=== PATIENT | male | born 1955 | race Caucasian/White ===

== ENCOUNTER → 2017-04-15 | Outpatient (CLI) | payer OTHER ==
[~2017-04-15] MED LIST: ASPIR 8181 MG PO; DIGOXIN250 MCG PO; IMDUR 30 MG TAB30 M1 PO; JANUVIA100 MG PO; MYRBETRIQ25 MG PO; NUVIGIL150 MG PO; PRILOSEC 20 MG20 MG PO; TOPROL XL100 MG PO
== END ==
LOC: RAD 12:46
DX: R06.00 Dyspnea, unspecified (principal)

== ENCOUNTER 2017-06-02 13:01 | Inpatient (IN) | payer OTHER ==
[~2017-06-02] VITALS: Ht 175.3 cm; Wt 135.4 kg
--- NOTE | ~2017-06-02 | EKG ---
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
--- NOTE | ~2017-06-02 | EXE ---
[facility] [address] [place] [address] STRESS ECHOCARDIOGRAM Name: RUSTAMGROVER Room #: 206-P ADM IN M.R.#: [id number] Admission: 06/02/17 Attend Phys: Erwin Galvez, Discharge: Date of : 57 Date of Service: 06/03/17 1232 Report #: [id number] THIS REPORT FOR: //name// APPROVED REPORT Exam: Dobutamine Stress Echo Indication: Chest pain Patient Location: Echo lab Stress Nurse: April Carr RN Room #: 206 Status: routine Ht: 5 ft 9 in HR: 66 bpm BP: 121/75 mmHg Rhythm: NSR Medical History Medical History: CABG, HTN, Hyperlipidemia, Diabetes Allergies: No known drug allergies Procedure The patient underwent a Pharmacological Stress Test using Dobutamine. Blood pressure, heart rate, and EKG were monitored. An Echocardiogram was performed by certified emergency vehicle technician in four stages in quad fashion. At peak stress, four selected images were obtained and placed side by side with resting images for comparison. Stress Test Details Stress Test: Pharmacological stress testing performed using 40 mcg/kg/min of Dobutamine. HR Resting HR: 66 bpm Max Heart Rate (APMHR): 159 bpm Max HR Achieved: 144 bpm Target HR (85% APMHR): 135 bpm % of APMHR: 90 Recovery HR: 85 bpm HR response to stress: Normal HR response to stress BP Resting BP: 124/62 mmHg Max BP: 140/80 mmHg Recovery BP: 106/72 mmHg ECG Resting ECG: Sinus Rhythm Stress ECG: Sinus Tachycardia [facility] [address] [place] [address] STRESS ECHOCARDIOGRAM Name: GROVER EASTON Room #: 206-P ADM IN .R.#: [id number] Admission: 06/02/17 Attend Phys: Erwin Galvez, Discharge: Date of : 57 Date of Service: 06/03/17 1232 Report #: [id number] Arrhythmia: None Recovery ECG: Sinus Rhythm Clinical Reason for Termination: Patient symptoms. Cough, chest discomfort Dobutamine for 11mins 58secs. Stress ECG Conclusion 1. SUBJECTIVELY NEGATIVE FOR ISCHEMIA 2. ELECTROCARDIOGRAPHICALLY NEGATIVE FOR ISCHEMIA Pre-Stress Echo The resting Echocardiogram showed normal left ventricular contractility with an estimated Ejection Fraction of about 55-60%. Biatrial enlargement. LVH noted, moderate MR and mild to moderate TR. PAP is 35mmHg plus the right atrial pressure. Post-Stress Echo The stress Echocardiogram showed normal left ventricular contractility with an estimated Ejection Fraction of about 65-70%. Normal augmentation of wall motion in all segments on post stress images. Conclusion Clinical Response: Non-ischemic Stress ECG Response: Non-ischemic Stress Echo Images: Non-ischemic 1. LOW RISK STUDY Other Information Study Quality: Adequate <Conclusion> 1. LOW RISK STUDY <ELECTRONICALLY SIGNED> By: Aquilino Wright MD 06/03/17 1232 1232 1232 Aquilino Wright MD /INF
[2017-06-02 13:11] VITALS: BP 154/80
[2017-06-02] MEDS ORDERED: TRAMADOL 50 MG50 MG PO (13:22)
[2017-06-02 13:46] LABS: ABSOLUTE NEUTROPHILS 7.6 thou/uL (1.4-8.2); BASOPHILS 0.7 % (0.0-2.0); HEMATOCRIT 44.5 % (42.0-52.0); HEMOGLOBIN 14.7 gm/dL (14.0-18.0); LYMPHOCYTES 20.2 % (24.0-44.0); MCH 26.6 pg (26.0-34.0); MCV 80.5 fL (80.0-100.0); PLATELET COUNT 198 thou/uL (150-400); POLYS 66.1 % (36.0-66.0); RBC 5.53 mil/uL (4.50-6.00); RDW 14.9 % (10.5-14.5); WBC 11.4 thou/uL (4.0-11.0)
[2017-06-02 13:54] LABS: ANION GAP 8 mmol/L (7-16); BUN 12 mg/dL (7-18); CALCIUM 8.9 mg/dL (8.5-10.1); CHLORIDE 105 mmol/L (98-107); CO2 25 mmol/L (21-32); GLUCOSE 224 mg/dL (74-106); POTASSIUM 4.1 mmol/L (3.5-5.1); SODIUM 138 mmol/L (136-145)
[2017-06-02 14:06] LABS: MANUAL DIFF NO
[2017-06-02 14:07] LABS: NT-PRO BRAIN NAT PEPTIDE 88 pg/mL (<300); TROPONIN-I < 0.04 ng/mL (<0.04-0.07)
[2017-06-02 15:40] VITALS: BP 133/66
[2017-06-02 15:53] LABS: APTT 26.9 Seconds (24.5-32.8); PROTIME 9.6 Seconds (9.3-11.4)
[2017-06-02 16:58] VITALS: BP 110/60
[2017-06-02 17:00] VITALS: BP 122/74
[2017-06-02 19:48] VITALS: BP 133/79
[2017-06-02 23:03] VITALS: BP 144/96
[2017-06-03 02:39] LABS: CHOLESTEROL 156 mg/dL (<200); HDL CHOLESTEROL 26 mg/dL (>40); LDL CHOLESTEROL 112 mg/dL (<100); TRIGLYCERIDE 94 mg/dL (<150); TROPONIN-I < 0.04 ng/mL (<0.04-0.07); VLDL 19 mg/dL (<40)
[2017-06-03 02:40] LABS: SERUM ASSESSMENT Clear
[2017-06-03 03:01] VITALS: BP 140/93
[2017-06-03 03:11] LABS: GLYCOHEMOGLOBIN (HGB A1C) 6.7 % (4.8-5.6)
[2017-06-03 08:18] VITALS: BP 121/75
[2017-06-03 10:55] VITALS: BP 92/59
[2017-06-03 14:42] VITALS: BP 92/59
[2017-06-03 16:03] VITALS: BP 92/59
== END 2017-06-03 16:00 | disposition home or self-care (01) | DRG 313 ==
LOC: ER 13:01 → EROBS 15:15 → 2N 15:15 → EROBS 16:42 → 2N 17:04
PROVIDERS: Emergency Medicine; Nurse Practitioner
DX: R07.89 Other chest pain (principal); I25.110 Atherosclerotic heart disease of native coronary artery with unstable angina pectoris; I48.91 Unspecified atrial fibrillation; E78.00 Pure hypercholesterolemia, unspecified; K21.9 Gastro-esophageal reflux disease without esophagitis; I10 Essential (primary) hypertension; G47.00 Insomnia, unspecified; Z96.652 Presence of left artificial knee joint; G47.33 Obstructive sleep apnea (adult) (pediatric); E78.5 Hyperlipidemia, unspecified; H54.8 Legal blindness, as defined in USA; E11.9 Type 2 diabetes mellitus without complications; Z95.1 Presence of aortocoronary bypass graft; Z90.49 Acquired absence of other specified parts of digestive tract; Z88.1 Allergy status to other antibiotic agents; Z88.6 Allergy status to analgesic agent; Z82.49 Family history of ischemic heart disease and other diseases of the circulatory system; Z79.82 Long term (current) use of aspirin; Z79.899 Other long term (current) drug therapy
CPT/HCPCS: 10081

== ENCOUNTER 2017-07-16 11:49 | Emergency (ER) | payer OTHER ==
[~2017-07-16] VITALS: Ht 175.3 cm; Wt 137.0 kg
[~2017-07-16 11:49] MED LIST changes: +TRAMADOL 50 MG50 MG PO
== END 2017-07-16 14:15 | disposition home or self-care (01) ==
LOC: ER 11:49 → EDBD 11:49 → ER 14:15
DX: R10.2 Pelvic and perineal pain (principal); I10 Essential (primary) hypertension; E78.00 Pure hypercholesterolemia, unspecified; K21.9 Gastro-esophageal reflux disease without esophagitis; I25.10 Atherosclerotic heart disease of native coronary artery without angina pectoris; I48.91 Unspecified atrial fibrillation; E11.9 Type 2 diabetes mellitus without complications; H54.0 Blindness, both eyes; Z95.1 Presence of aortocoronary bypass graft; Z98.890 Other specified postprocedural states; Z96.652 Presence of left artificial knee joint; Z88.1 Allergy status to other antibiotic agents; Z88.6 Allergy status to analgesic agent; V03.90XA Pedestrian on foot injured in collision with car, pick-up truck or van, unspecified whether traffic or nontraffic accident, initial encounter; Y93.89 Activity, other specified; Y92.89 Other specified places as the place of occurrence of the external cause; Y99.8 Other external cause status

== ENCOUNTER → 2017-11-19 | Outpatient (CLI) | payer OTHER ==
[~2017-11-19] VITALS: Ht 175.3 cm; Wt 136.1 kg
[~2017-11-19] MED LIST changes: +CENTRUM SILVER1 EAC4 PO; +GABAPENTIN 100100 MG; -IMDUR 30 MG TAB30 M1 PO; +IMDUR 60 MG TAB60 M1 PO; +MECLIZINE HCL12.5 MG PO; +MELATONIN3 MG PO; +NAPROSYN500 MG PO; +NITROGLYCERIN0.4 MG SUBLING; +PROTONIX40 M1 PO
--- NOTE | ~2017-11-19 | S ---
[facility] [place] [address] SURGICAL PATH RPT PROCEDURE Name: GROVER MCGEE Room #: REG CL M.R.#: [id number] Admission: 11/19/17 Date of : 57 Discharge: Report #: [id number] Path Case #: [id number] PATHOLOGY REPORT COLLECTION DATE: 11/19/2017 RECEIVED DATE: 11/19/2017 SUBMITTING PHYS: Dr. Oscar Rivera OTHER PHYS: Dr. Jomar Nichols SPECIMEN(S) RECEIVED: A.Gastric * * * * * * * * * * * * FINAL DIAGNOSIS: A. Gastric: - Chronic inactive gastritis. - An H. pylori immunostain is negative (Block A1; appropriately reactive control). PATHOLOGIST: Chad Rodriguez M.D. REPORT ELECTRONICALLY SIGNED BY: Chad Rodriguez M.D. DATE/TIME: 11/22/2017 10:16 * * * * * * * * * * * * GROSS PATHOLOGY: Received in formalin labeled "Grover Mgcee, BX of gastric rule out H. pylori," are 4 segments of griffin soft tissue measuring 1.0 x 0.4 x 0.2 cm in aggregate dimensions. The specimen is submitted entirely in cassette A1. (SDY; 11/19/2017) CLINICAL HISTORY: Dysphagia Reflux, chest pain, dysphagia INITIAL CPT CODE(S): A; 28330, 31018 Professional services performed by [facility] at [address], [place] [address] Technical services performed by [facility] at [address] [place] [address], [address], [place] [address]. [facility] [address] [place] [address] SURGICAL PATH RPT PROCEDURE Name: GROVER MCGEE Room #: REG HOLLY Harris.#: [id number] Admission: 11/19/17 Date of : 57 Discharge: Report #: [id number] Path Case #: [id number] [facility] [address] [address] PHONE: [phone] DIRECTOR: Rah Newberry M.D. * * * END OF REPORT * * *
--- NOTE | ~2017-11-19 | P ---
[facility] [place] [address] PROCEDURE REPORT Name: GROVER EASTON Room #: REG [facility].#: [id number] Admission: 11/19/17 Attend Phys: Oscar Ibarra Discharge: Date of : 57 Report #: [id number] THIS REPORT FOR: //name// CC: Oscar Nichols MD DATE OF SERVICE: 11/19/2017 PROCEDURE PERFORMED: Upper endoscopy with biopsies and esophageal dilation. HISTORY OF PRESENT ILLNESS: The patient is a 62-year-old male with a history of gastroesophageal reflux disease and intermittent chest pain despite being on omeprazole 40 mg on a daily basis. He has continued symptoms. He does take aspirin as well as NSAIDs. Plan is for upper endoscopy. The patient's cardiac workup has been negative. DESCRIPTION OF PROCEDURE: The risks and benefits of the procedure were explained to the patient, those risks including but not limited to bleeding, perforation and the risk of sedation. He understood these risks and gave informed consent. Sedation was given using propofol per anesthesia. Next, using a standard KellBenxn upper endoscope, the scope was placed in the patient's mouth and advanced under direct vision through the esophagus, stomach and into the second portion of the duodenum. The larynx was normal in appearance. The esophagus was normal throughout. The GE junction was normal. There was no evidence of esophagitis or strictures. Overall, the gastric mucosa was normal. Biopsies were obtained to rule out the possibility of H. pylori. The pylorus was normal and patent. The duodenal bulb, first and second portion were all normal. The scope was then brought back up into the patient's stomach and a Savary guidewire was inserted through the scope, leaving the guidewire in place as the scope was then withdrawn. Next, a 48-Yi Savary dilation of the esophagus was performed without difficulty. The wire and dilator removed. The scope was reintroduced into the patient's stomach. There was no evidence of mucosal tear after dilation. The scope was then withdrawn and the procedure terminated. The patient tolerated the procedure well. IMPRESSION: Normal upper endoscopy, status post dilation. RECOMMENDATIONS: 1. Await biopsy results. 2. Observe the patient post-dilation. 3. We will switch to different PPI therapy to see if this improves his symptoms. [address] [address] PROCEDURE REPORT Name: GROVER EASTON Room #: REG CLSaqib Gallagher#: [id number] Admission: 11/19/17 Attend Phys: Oscar Ibarra Discharge: Date of : 57 Report #: [id number] Thank you for allowing me to participate in his care. <ELECTRONICALLY SIGNED> By: Oscar Rivera MD 11/26/17 0808 0857 2134 Oscar Rivera MD /nt
== END | disposition home or self-care (01) ==
LOC: GI 06:38
DX: K21.9 Gastro-esophageal reflux disease without esophagitis (principal); I48.91 Unspecified atrial fibrillation; I11.9 Hypertensive heart disease without heart failure; E11.9 Type 2 diabetes mellitus without complications; I25.10 Atherosclerotic heart disease of native coronary artery without angina pectoris; E78.5 Hyperlipidemia, unspecified; G47.33 Obstructive sleep apnea (adult) (pediatric); Z95.1 Presence of aortocoronary bypass graft; Z79.82 Long term (current) use of aspirin; Z96.652 Presence of left artificial knee joint; Z79.899 Other long term (current) drug therapy; Z98.890 Other specified postprocedural states
CPT/HCPCS: 62110; 62900

== ENCOUNTER 2018-08-17 09:08 | Observation (INO) | payer OTHER ==
[~2018-08-17] VITALS: Ht 175.3 cm; Wt 139.3 kg
--- NOTE | ~2018-08-17 | CATHLAB ---
[facility] [place] [address] INVASIVE PROCEDURE REPORT Name: EASTON,GROVER YULI Room #: 218-P ADM IN ..#: [id number] Admission: 08/17/18 Attend Phys: Aquilino Velazquez Discharge: Date of : 57 Date of Service: 08/18/18 1304 Report #: [id number] THIS REPORT FOR: //name// APPROVED REPORT Study performed: 08/17/2018 11:10:43 Patient Details Patient Status: Out-Patient Room #: The patient is a 63 year-old male Event Personnel Aquilino Wright Media Assistant, Marilee Rea RN RN, Ivet Siu RTR, Guillermo España David Monitor Procedures Performed Art Access - R femoral artery* Left Heart Cath w/or w/o Coronaries [id number] [facility] Hemostasis with Manual pressure 23510 Initial Mod Sed Same Phys/QHP Gr 300178 73367 Mod Sed Same Phys/QHP Ea 891592, supervision of conscious sedation Indication Chest pain Procedure Narrative The Right Groin^ was infiltrated with 1% Lidocaine subcutaneous anesthesia. A PINNACLE 4FR Sheath #[id number] sheath was inserted into the RFA^. Coronary angiography was performed using coronary diagnostic catheters. The right coronary system was accessed and visualized with a 4FR AL2 #[id number] catheter. The left coronary system was accessed and visualized with a 4FR AL1 #[id number] catheter. The left ventricle was accessed and visualized with a angled pigtail catheter. Left ventricular/Aortic Valve gradient assessed via catheter pullback. Hemostasis was obtained with manual pressure following sheath removal without any complications. The patient tolerated the procedure well and there were no complications associated with the procedure. There was no hematoma. Intraoperative Conscious Sedation Sedation start time: 11:48 Case end Time: 12:27 Versed 3 mg Fluoro Time: 5.18 minutes [facility] [place] [address] INVASIVE PROCEDURE REPORT Name: GROVER EASTON Room #: 218-P [facility] IN ..#: [id number] Admission: 08/17/18 Attend Phys: Aquilino Velazquez Discharge: Date of : 57 Date of Service: 08/18/18 1304 Report #: [id number] Dose: DAP 8259 cGycm2 1253 mGy Contrast Type and Amount: Omnipaque 60 ml Coronary Angiography The patient's coronary anatomy is right dominant. 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 LAD Eyes caliber vessel coursing the anterior interventricular sulcus tapering as his course towards the apex. 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 It continues in the AV groove posteriorly giving rise to a moderate to large caliber posterior descending artery all of which are free of high-grade disease. The posterior circulation consists of 2 large posterior wall branches without significant stenosis R PDA Large caliber vessel of normal origin without significant lesions identified Hemodynamics The aortic pressure is 127/82 mmHg with a mean of 61 mmHg. The left ventricular pressure is 130/13 mmHg with a mean of mmHg. The left ventricular end diastolic pressure is 37 mmHg. Conclusion 1. Coronary disease mild nonobstructive 2. Normal hemodynamics Recommendations Cardiac Risk Reduction Program <ELECTRONICALLY SIGNED> By: Aquilino Wright MD 08/18/18 1304 1304 1304 Aquilino Wright MD /INF
[~2018-08-17 09:08] MED LIST changes: -GABAPENTIN 100100 MG; -MELATONIN3 MG PO; -PROTONIX40 M1 PO
[2018-08-17] MEDS ORDERED: PROTONIX40 M1 PO (09:40)
[2018-08-17] MEDS ORDERED: MELATONIN3 MG PO (09:42)
[2018-08-17 09:43] VITALS: BP 128/81
[2018-08-17 10:09] LABS: HEMOGLOBIN 15.1 gm/dL (14.0-18.0); MCHC 34.3 g/dL (28.0-37.0); MCV 78.5 fL (80.0-100.0); RBC 5.6 mil/uL (4.50-6.00); RDW 14.8 % (10.5-14.5); WBC 12.1 thou/uL (4.0-11.0)
[2018-08-17 10:19] LABS: APTT 26.9 Seconds (24.5-32.8); CALCIUM 9.6 mg/dL (8.5-10.1); CREATININE 0.8 mg/dL (0.7-1.3); POTASSIUM 4.7 mmol/L (3.5-5.1); PROTIME 10.5 Seconds (9.3-11.4)
[2018-08-17 12:44] VITALS: BP 122/76
[2018-08-17 15:59] VITALS: BP 121/80
[2018-08-17] MEDS ORDERED: GABAPENTIN 100100 MG (16:40)
[2018-08-17 20:09] VITALS: BP 135/82
[2018-08-18 04:12] VITALS: BP 146/80
[2018-08-18 07:11] VITALS: BP 121/81
[2018-08-18 10:26] VITALS: BP 121/81
[2018-08-18 11:38] VITALS: BP 135/75
== END 2018-08-18 13:40 | disposition home or self-care (01) ==
LOC: CATH 09:08 → 2N 12:19 → CATH 14:29 → ENTRNSPT 08-18 13:28 → EDTRNSPTSTS 08-18 13:32 → 2N 08-18 13:40
PROVIDERS: Internal Medicine
DX: R07.89 Other chest pain (principal); I10 Essential (primary) hypertension; E78.5 Hyperlipidemia, unspecified; I48.91 Unspecified atrial fibrillation; I25.10 Atherosclerotic heart disease of native coronary artery without angina pectoris; E11.8 Type 2 diabetes mellitus with unspecified complications; K21.9 Gastro-esophageal reflux disease without esophagitis; G47.00 Insomnia, unspecified; G47.30 Sleep apnea, unspecified; Z95.5 Presence of coronary angioplasty implant and graft; Z90.49 Acquired absence of other specified parts of digestive tract; Z98.890 Other specified postprocedural states; Z72.89 Other problems related to lifestyle

== ENCOUNTER 2018-10-28 11:37 | Emergency (ER) | payer OTHER ==
[~2018-10-28] VITALS: Ht 175.3 cm; Wt 133.8 kg
[~2018-10-28 11:37] MED LIST changes: +GABAPENTIN 100100 MG; +MELATONIN3 MG PO; +PROTONIX40 M1 PO
[2018-10-28 12:55] LABS: ABSOLUTE NEUTROPHILS 10.5 thou/uL (1.4-8.2); BASOPHILS 1.1 % (0.0-2.0); EOSINOPHILS 1.8 % (0.0-3.0); HEMATOCRIT 47.8 % (42.0-52.0); HEMOGLOBIN 16.3 gm/dL (14.0-18.0); MCH 26.9 pg (26.0-34.0); MCHC 34.1 g/dL (28.0-37.0); MCV 78.8 fL (80.0-100.0); MONOCYTES 7.5 % (1.0-8.0); PLATELET COUNT 240 thou/uL (150-400); POLYS 72.6 % (36.0-66.0); RBC 6.07 mil/uL (4.50-6.00); WBC 14.5 thou/uL (4.0-11.0)
[2018-10-28 13:04] LABS: ANION GAP 7 mmol/L (7-16); BUN 14 mg/dL (7-18); CALCIUM 9.8 mg/dL (8.5-10.1); CHLORIDE 99 mmol/L (98-107); CO2 27 mmol/L (21-32); CREATININE 1.3 mg/dL (0.7-1.3); GLUCOSE 297 mg/dL (74-106); POTASSIUM 5.7 mmol/L (3.5-5.1); SODIUM 133 mmol/L (136-145)
[2018-10-28 13:14] LABS: TROPONIN-I <0.06 ng/mL (<0.06)
[2018-10-28 15:32] LABS: CREATININE 1.2 mg/dL (0.7-1.3); POTASSIUM 4.8 mmol/L (3.5-5.1)
[2018-10-28 17:25] VITALS: BP 110/57
--- NOTE | 2018-10-30 21:47 | EKG ---
[address] [place] [place] [address] ELECTROCARDIOGRAM REPORT Name: EASTONGROVER Room #: DEP [facility]#: [id number] Admission: 10/28/18 Attend Phys: Discharge: 10/28/18 Date of : 57 Report #: [id number] THIS REPORT FOR: //name// 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: [facility] : 1955 Requested By: Luis Eduardo Gonzalez Order Number: [id number] MD: Miguel A Swan Measurements Intervals [place] Rate: 112 P: [place]: QRS: 37 QRSD: 90 T: 103 QT: 342 QTc: 467 Interpretive Statements Atrial fibrillation Nonspecific T abnormalities, lateral leads Compared to ECG 06/02/2017 13:12:03 T-wave abnormality now present Sinus rhythm no longer present Electronically Signed On 10-30-2018 21:46:53 FITNESS CENTRE MANAGER by Miguel A Swan [email or web address] <ELECTRONICALLY SIGNED> By: Miguel A Swan MD 10/30/18 2146 1155 1155 Miguel A Swan MD /YOSELIN
== END 2018-10-28 17:26 | disposition home or self-care (01) ==
LOC: ER 11:37
PROVIDERS: Emergency Medicine
DX: I48.0 Paroxysmal atrial fibrillation (principal); I25.810 Atherosclerosis of coronary artery bypass graft(s) without angina pectoris; E78.5 Hyperlipidemia, unspecified; K21.9 Gastro-esophageal reflux disease without esophagitis; I10 Essential (primary) hypertension; G47.00 Insomnia, unspecified; G47.30 Sleep apnea, unspecified; Z96.652 Presence of left artificial knee joint; Z90.49 Acquired absence of other specified parts of digestive tract; Z88.1 Allergy status to other antibiotic agents; Z88.6 Allergy status to analgesic agent

== ENCOUNTER 2018-11-21 14:46 | Emergency (ER) | payer OTHER ==
[~2018-11-21] VITALS: Ht 175.3 cm; Wt 136.1 kg
[2018-11-21 15:33] LABS: ABSOLUTE NEUTROPHILS 9.4 thou/uL (1.4-8.2); EOSINOPHILS 2.9 % (0.0-3.0); HEMATOCRIT 44.3 % (42.0-52.0); HEMOGLOBIN 15.2 gm/dL (14.0-18.0); LYMPHOCYTES 20.5 % (24.0-44.0); MCH 27.4 pg (26.0-34.0); MCHC 34.3 g/dL (28.0-37.0); MCV 79.9 fL (80.0-100.0); MONOCYTES 8.3 % (1.0-8.0); PLATELET COUNT 222 thou/uL (150-400); POLYS 67.3 % (36.0-66.0); RBC 5.54 mil/uL (4.50-6.00); RDW 15.2 % (10.5-14.5)
[2018-11-21 15:38] LABS: ANION GAP 8 mmol/L (7-16); BUN 15 mg/dL (7-18); CALCIUM 9.6 mg/dL (8.5-10.1); CHLORIDE 102 mmol/L (98-107); CO2 26 mmol/L (21-32); GLUCOSE 212 mg/dL (74-106); POTASSIUM 4.5 mmol/L (3.5-5.1); SODIUM 136 mmol/L (136-145)
[2018-11-21 15:47] LABS: TROPONIN-I <0.06 ng/mL (<0.06)
[2018-11-21] MEDS ORDERED: ISOSORBIDE MON120 MG PO (16:25)
[2018-11-21] MEDS ORDERED: XARELTO20 MG PO (16:25)
--- NOTE | 2018-11-21 16:53 | EKG ---
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: fide stallings : 1955 Requested By: Luis Eduardo Gonzalez Order Number: [id number] MD: Blue Hussein Measurements Intervals [place] Rate: 123 P: [place]: QRS: 33 QRSD: 91 T: 43 QT: 319 QTc: 457 Interpretive Statements Atrial fibrillation Ventricular premature complex Compared to ECG 10/28/2018 11:55:10 Ventricular premature complex(es) now present Electronically Signed On 11-21-2018 16:53:08 RADIO STATION OPERATOR by Blue Hussein [email or web address] <ELECTRONICALLY SIGNED> By: Blue Hussein MD, [facility] 11/21/18 1653 1500 [facility] Blue Hussein MD, FACC /EPI
[2018-11-21] MEDS ORDERED: CARDIZEM LA180 M1 PO (16:55)
[2018-11-21 18:47] VITALS: BP 123/74
== END 2018-11-21 18:49 | disposition home or self-care (01) ==
LOC: ER 14:46
PROVIDERS: Emergency Medicine
DX: I48.2 Chronic atrial fibrillation (principal); I25.10 Atherosclerotic heart disease of native coronary artery without angina pectoris; E78.5 Hyperlipidemia, unspecified; K21.9 Gastro-esophageal reflux disease without esophagitis; I10 Essential (primary) hypertension; G47.00 Insomnia, unspecified; E11.9 Type 2 diabetes mellitus without complications; Z95.1 Presence of aortocoronary bypass graft; Z90.49 Acquired absence of other specified parts of digestive tract; Z88.1 Allergy status to other antibiotic agents; Z88.6 Allergy status to analgesic agent

== ENCOUNTER → 2019-01-18 | Outpatient (CLI) | payer OTHER ==
[~2019-01-18] MED LIST changes: +CARDIZEM LA180 M1 PO; +ISOSORBIDE MON120 MG PO; +XARELTO20 MG PO
== END ==
LOC: MRI 09:31
DX: M47.816 Spondylosis without myelopathy or radiculopathy, lumbar region (principal)